=== PATIENT | male | born 1990 | race Caucasian/White ===

== ENCOUNTER 2022-01-28 19:21 | Inpatient (IN) | payer OTHER, BC ==
[~2022-01-28 19:21] MED LIST: Iopamidol-370 76% 500 ML 1 ML ONE
[2022-01-28] MEDS ORDERED: Fentanyl 100 MCG/2 ML VIAL ONE ×2 (19:29→20:46)
[2022-01-28 19:46] LABS: Hemoglobin 15.6 g/dL (14.0-18.0); Mean Corpuscular HGB CONC 34.4 g/dL (32.0-36.0); Mean Corpuscular Hemoglobin 32.1 pg (27.0-31.0); Mean Corpuscular Volume 93.3 fL (78.0-98.0); Mean Platelet Volume 6.6 fL (7.4-10.4); Platelet Count 327 thou/uL (130-400); RBC Distribution Width 11.6 % (11.5-14.5); Red Blood Cell (RBC) Count 4.86 mill/uL (4.70-6.10); White Blood Cell (WBC) Count 24.7 thou/uL (4.8-10.8)
[2022-01-28] MEDS ORDERED: Boostrix 0.5 ML (Tdap) VIAL ONE (19:58)
[2022-01-28 20:06] LABS: ALT (SGPT) 27 U/L (8-55); AST (SGOT) 26 U/L (5-34); Albumin 4.4 g/dL (3.5-5.0); Alkaline Phosphatase 75 U/L (40-110); Anion Gap 14 mmol/L (10-20); BUN (Urea Nitrogen) 14 mg/dL (8.9-20.6); Bilirubin, Total 0.6 mg/dL (0.2-1.2); Calc. Creatinine Clearance 0 mL/min (70-130); Calcium 9.5 mg/dL (7.8-10.44); Carbon Dioxide 22 mmol/L (22-29); Chloride 107 mmol/L (98-107); Globulin 3.1 g/dL (2.4-3.5); Glucose 140 mg/dL (70-105); Protein, Total 7.5 g/dL (6.0-8.3); Sodium 139 mmol/L (136-145)
[2022-01-28 20:07] LABS: Band 8 % (5-11); Eosinophils 2 % (0-10); Lymphocytes 12 % (21-51); MDiff Complete? YES; Monocytes 12 % (0-10); Neutrophil 62 % (42-75); Platelet Morphology Comment Appears Adequate; RBC Morphology Normal; Reactive Lymphocytes 4 % (0-10)
[2022-01-28] MEDS ORDERED: Ondansetron PF 4 MG/2 ML Vial IVP PRN ×2 (20:17→21:16)
[2022-01-28] MEDS ORDERED: Morphine 2 MG/ML VIAL SLOW IVP PRN ×2 (20:17→21:17)
[2022-01-28] MEDS ORDERED: Promethazine HCl 25 MG/ML VIAL IM PRN ×2 (20:17→21:16)
[2022-01-28] MEDS ORDERED: traMADol HCl 50 MG TAB PO PRN ×2 (20:19→22:04)
[2022-01-28] MEDS ORDERED: Cyclobenzaprine 10 MG TAB PO PRN (20:19)
[2022-01-28] MEDS ORDERED: CEFAZOLIN 2 GM VIAL ONE (20:34)
[2022-01-28] MEDS ORDERED: Midazolam HCl 2 mg/2 ml Vial ONE (20:46)
[2022-01-28] MEDS ORDERED: HYDROmorphone 0.5 MG/0.5 ML SYRINGE ONE (20:56)
[2022-01-28] MEDS ORDERED: diphenhydrAMINE 50 MG/ML VIAL IVP PRN (21:16)
[2022-01-28] MEDS ORDERED: Naloxone HCl 0.4 mg/ml Vial IV PRN (21:16)
[2022-01-28] MEDS ORDERED: diphenhydrAMINE 25 MG CAP PO PRN (21:16)
[2022-01-28] MEDS ORDERED: Zolpidem Tartrate 5 MG TAB PO PRN (21:16)
[2022-01-28] MEDS ORDERED: HYDROmorphone 10 mg/100 ml CADD IVPB PRN (21:16)
[2022-01-28] MEDS ORDERED: diphenhydrAMINE 50 MG/ML VIAL IM PRN (21:16)
[2022-01-28] MEDS ORDERED: Nicotine 14 MG PATCH TD SCH (21:30)
[2022-01-28] MEDS ORDERED: Communication Order-Pharmacy FS SCH (21:30)
[2022-01-28] MEDS ORDERED: traMADol HCl 50 MG TAB PO SCH (23:59)
[2022-01-29] MEDS: Senokot S 8.6-50 MG TAB PO SCH ×3 (00:32→20:52)
[2022-01-29] MEDS: Famotidine 20 MG TAB PO SCH ×3 (00:32→20:52)
[2022-01-29] MEDS: traMADol HCl 50 MG TAB PO SCH ×4 (00:42→18:59)
[2022-01-29] MEDS: Acetaminophen 500 MG TAB PO SCH ×4 (00:42→18:59)
[2022-01-29] MEDS: Ketorolac Tromethamine 30 MG/ML VIAL IVP SCH ×4 (00:43→18:58)
[2022-01-29] MEDS: Sodium Chloride 0.9% 1,000 ML IV SCH ×3 (00:47→14:11)
[2022-01-29 00:55] VITALS: BMI 34.0
[2022-01-29 02:19] LABS: SARS-CoV-2 NAA Rapid Test Not Detected (NotDetected)
[2022-01-29] MEDS: CEFAZOLIN 2 GM in Sodium Chloride 0.9% 100 ML IVPB SCH ×3 (06:03→18:54)
[2022-01-29 06:26] LABS: #Eosinphils 0.1 thou/uL (0.0-0.7); #Lymphocytes 2.9 thou/uL (1.20-3.40); #Monocytes 1.5 thou/uL (0.11-0.59); #Neutrophils 6.2 thou/uL (1.40-6.50); %Basophils 0.4 % (0.0-1.0); %Eosinophils 1.2 % (0.0-10.0); %Lymphocytes 26.8 % (21.0-51.0); %Monocytes 14.2 % (0.0-10.0); %Neutrophils 57.5 % (42.0-75.0); Hemoglobin 13.2 g/dL (14.0-18.0); Mean Corpuscular HGB CONC 34.5 g/dL (32.0-36.0); Mean Corpuscular Hemoglobin 32.4 pg (27.0-31.0); Mean Platelet Volume 6.4 fL (7.4-10.4); Platelet Count 266 thou/uL (130-400); RBC Distribution Width 11.9 % (11.5-14.5); Red Blood Cell (RBC) Count 4.08 mill/uL (4.70-6.10); White Blood Cell (WBC) Count 10.7 thou/uL (4.8-10.8)
[2022-01-29 06:31] LABS: PTT 27.5 sec (22.9-36.1); Prothrombin Time 13.5 sec (12.0-14.7)
[2022-01-29 06:54] LABS: Anion Gap 12 mmol/L (10-20); BUN (Urea Nitrogen) 10 mg/dL (8.9-20.6); Calc. Creatinine Clearance 179 mL/min (70-130); Calcium 9.1 mg/dL (7.8-10.44); Carbon Dioxide 22 mmol/L (22-29); Chloride 109 mmol/L (98-107); Glucose 112 mg/dL (70-105); Magnesium 1.7 mg/dL (1.6-2.6); Phosphorus 4.4 mg/dL (2.3-4.7); Potassium 3.8 mmol/L (3.5-5.1); Sodium 139 mmol/L (136-145)
[2022-01-29] MEDS ORDERED: Magnesium 2 GM/50 ML(in water) 3 GM in Premix Bag 1 BAG IVPB SCH (07:30)
[2022-01-29] MEDS ORDERED: ceFAZolin 2 GM/Dextrose 50 ML 2 GM in Premix Bag 1 BAG IVPB SCH (07:30)
[2022-01-29] MEDS ORDERED: CEFAZOLIN 2 GM in Sodium Chloride 0.9% 100 ML IVPB SCH (07:45)
[2022-01-29] MEDS ORDERED: Magnesium Sulfate 3 GM in Sodium Chloride 0.9% 100 ML IVPB SCH (09:00)
[2022-01-29] MEDS: Polyethylene Glycol 3350 17 GM Packet PO SCH (09:00)
[2022-01-29] MEDS ORDERED: CEFAZOLIN 2 GM VIAL ONE (10:05)
[2022-01-29] MEDS ORDERED: Sodium Chloride 0.9% 100 ML ONE (10:06)
[2022-01-29] MEDS ORDERED: Glycopyrrolate 0.2 MG/ML 5 ML SYRINGE ONE (10:20)
[2022-01-29] MEDS ORDERED: Ketorolac Tromethamine 30 MG/ML VIAL ONE (10:20)
[2022-01-29] MEDS ORDERED: Rocuronium Bromide 10 MG/ML (10ML VIAL) ONE (10:20)
[2022-01-29] MEDS ORDERED: Ondansetron PF 4 MG/2 ML Vial ONE (10:20)
[2022-01-29] MEDS ORDERED: PROPOFOL 200 MG/20 ML VIAL ONE (10:20)
[2022-01-29] MEDS ORDERED: Midazolam HCl 2 mg/2 ml Vial ONE (10:21)
[2022-01-29] MEDS ORDERED: fentaNYL Citrate/PF 100 MCG/2 ML SYRINGE ONE ×3 (10:21→11:31)
[2022-01-29] MEDS ORDERED: HYDROmorphone 2 MG/ML VIAL SLOW IVP PRN (12:05)
[2022-01-29] MEDS ORDERED: Promethazine HCl 25 MG/ML VIAL IM PRN (12:05)
[2022-01-29] MEDS ORDERED: Promethazine HCl 25 MG/ML VIAL IVPB PRN (12:05)
[2022-01-29] MEDS ORDERED: Ondansetron HCl/PF 4 MG/2 ML Vial IVP PRN (12:05)
[2022-01-29] MEDS ORDERED: HYDROmorphone 0.5 MG/0.5 ML SYRINGE ONE ×2 (12:36→12:47)
[2022-01-29] MEDS: Pregabalin 50 MG CAP PO SCH ×2 (15:33→20:52)
[2022-01-29] MEDS ORDERED: Enoxaparin Sodium 40 MG/0.4 ML SYRINGE SC SCH (21:00)
[2022-01-30] MEDS: Sodium Chloride 0.9% 1,000 ML IV SCH ×2 (00:52→05:50)
[2022-01-30] MEDS: traMADol HCl 50 MG TAB PO SCH ×3 (00:53→12:57)
[2022-01-30] MEDS: Acetaminophen 500 MG TAB PO SCH ×3 (00:53→12:57)
[2022-01-30] MEDS: Ketorolac Tromethamine 30 MG/ML VIAL IVP SCH ×2 (00:54→05:46)
[2022-01-30] MEDS: CEFAZOLIN 2 GM in Sodium Chloride 0.9% 100 ML IVPB SCH (02:29)
[2022-01-30] MEDS: Famotidine 20 MG TAB PO SCH (08:07)
[2022-01-30] MEDS: Pregabalin 50 MG CAP PO SCH (08:07)
[2022-01-30] MEDS: Polyethylene Glycol 3350 17 GM Packet PO SCH (08:07)
[2022-01-30] MEDS: Senokot S 8.6-50 MG TAB PO SCH (08:07)
[2022-01-30] MEDS ORDERED: Ibuprofen 200 MG TAB PO SCH (11:00)
[2022-01-30 12:23] VITALS: BP 128/72; TEMP 98.5
== END 2022-01-30 13:40 | disposition home or self-care (01) | DRG 494 ==
LOC: ERS 19:21 → SJJU 20:43
PROVIDERS: ADMIT Surgery; ATTEND Surgery
PROC: 0QSG06Z Reposition Right Tibia with Intramedullary Internal Fixation Device, Open Approach (ICD-10-PCS; principal; 2022-01-29)
PROC: 0QSJ04Z Reposition Right Fibula with Internal Fixation Device, Open Approach (ICD-10-PCS; 2022-01-29)
DX: S82.251A Displaced comminuted fracture of shaft of right tibia, initial encounter for closed fracture (principal); S82.451A Displaced comminuted fracture of shaft of right fibula, initial encounter for closed fracture; F17.210 Nicotine dependence, cigarettes, uncomplicated; S92.491A Other fracture of right great toe, initial encounter for closed fracture; Z20.822 Contact with and (suspected) exposure to COVID-19; Z72.89 Other problems related to lifestyle; Z88.8 Allergy status to other drugs, medicaments and biological substances; Z98.890 Other specified postprocedural states; V23.4XXA Motorcycle driver injured in collision with car, pick-up truck or van in traffic accident, initial encounter
CPT/HCPCS: 36415; 70450; 71045; 71260; 72125; 74177; 76000; 80048; 80053; 83605; 83735; 84100; 85025; 85610; 85730; 90715; 94760; C1713; C1769; G0390; J1170; J1650; J1885; J2250; J2270; J2405; J2704; J3010; J3475; J3490; J7050; Q9967; U0002

== ENCOUNTER 2022-05-05 12:46 | Outpatient (CLI) | payer BC | END 2022-05-05 12:47 | disposition home or self-care (01) | LOC: LABBT 12:46 | PROVIDERS: ATTEND Orthopaedic Surgery | DX: S82.201A Unspecified fracture of shaft of right tibia, initial encounter for closed fracture (principal); Z20.822 Contact with and (suspected) exposure to COVID-19 | CPT/HCPCS: 87811 ==

== ENCOUNTER 2022-05-07 06:05 | Day surgery (SDC) | payer BC ==
[2022-05-05 13:34] VITALS: BMI 34.0
[2022-05-07] MEDS ORDERED: CEFAZOLIN 2 GM VIAL ONE (06:47)
[2022-05-07] MEDS ORDERED: Sodium Chloride 0.9% 100 ML ONE (06:47)
[2022-05-07] MEDS ORDERED: Midazolam HCl 2 mg/2 ml Vial ONE (07:49)
[2022-05-07] MEDS ORDERED: fentaNYL Citrate/PF 100 MCG/2 ML SYRINGE ONE ×4 (07:50→09:46)
[2022-05-07] MEDS ORDERED: PROPOFOL 200 MG/20 ML VIAL ONE (07:52)
[2022-05-07] MEDS ORDERED: Ketorolac Tromethamine 30 MG/ML VIAL ONE (07:52)
[2022-05-07] MEDS ORDERED: HYDROmorphone 2 MG/ML VIAL ONE (09:03)
[2022-05-07] MEDS ORDERED: Promethazine HCl 25 MG/ML VIAL IM PRN (10:02)
[2022-05-07] MEDS ORDERED: HYDROmorphone 2 MG/ML VIAL SLOW IVP PRN (10:02)
[2022-05-07] MEDS ORDERED: Ondansetron HCl/PF 4 MG/2 ML Vial IVP PRN (10:02)
[2022-05-07] MEDS ORDERED: Promethazine HCl 25 MG/ML VIAL IVPB PRN (10:02)
[2022-05-07] MEDS ORDERED: Fentanyl 100 MCG/2 ML VIAL ONE ×3 (10:18→10:59)
[2022-05-07] MEDS ORDERED: Meperidine HCl/PF 25 MG/ML VIAL ONE (10:23)
[2022-05-07] MEDS ORDERED: Ondansetron PF 4 MG/2 ML Vial ONE (10:35)
[2022-05-07] MEDS ORDERED: Labetalol HCl 100 MG/20 ML VIAL ONE (10:44)
[2022-05-07] MEDS ORDERED: HYDROcodone/Acetaminophen 5/325 mg Tablet ONE (11:48)
== END 2022-05-07 13:47 | disposition home or self-care (01) ==
LOC: SDC 06:05
PROVIDERS: ATTEND Orthopaedic Surgery
PROC: 0QHG34Z Insertion of Internal Fixation Device into Right Tibia, Percutaneous Approach (ICD-10-PCS; principal; 2022-05-07)
DX: S82.201K Unspecified fracture of shaft of right tibia, subsequent encounter for closed fracture with nonunion (principal); F17.200 Nicotine dependence, unspecified, uncomplicated; Z88.4 Allergy status to anesthetic agent
CPT/HCPCS: 76000; C1713; J0690; J1170; J1885; J2175; J2250; J2405; J2704; J3010; J3490